=== PATIENT | male | born 1965 | race Caucasian/White ===

== ENCOUNTER 2016-04-27 16:00 | Emergency (ER) | payer OTHER ==
[~2016-04-27] VITALS: Ht 182.9 cm; Wt 77.3 kg
[~2016-04-27 16:00] MED LIST: HYDR2TAB27 PO; VENL75CA95 PO
[2016-04-27 16:05] VITALS: BP 131/75; PULSE 88; RESP 20; O2SAT 100
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
[2016-04-27] MEDS ORDERED: Piperacillin-Tazo 3.375 Gm Inj 3.375 GM in Dextrose 5% Minibag Plus 50 ML IV ONE (18:25)
[2016-04-27] MEDS ORDERED: 0.9% Sodium Chloride 1,000 ML IV SCH (18:25)
[2016-04-27 18:34] LABS: BASOPHILS % (AUTO) 0.8 % (0-3); EOSINOPHILS % (AUTO) 7.2 % (0-5); MONOCYTES % (AUTO) 14.4 % (4-12); Mean Corpuscular Hemoglobin 30.5 pg (27.0-35.0); NEUTROPHILS % (AUTO) 46.7 % (40-74); Platelet Count 232 bil/L (150-400)
--- NOTE | 2016-04-27 18:53 | DRSVH ---
PROCEDURE: X-RAY CHEST ONE VIEW, PORTABLE ([id number]) INDICATIONS: infection TECHNIQUE: One view of the chest was acquired. COMPARISON: None. FINDINGS: Surgical changes and devices: monitoring tech leads are seen over the chest. Sternotomy wires are pre sent. Previous anterior lower cervical spine surgery is noted with partially imaged plate and screws. Lungs and pleura: No pleural effusions or pneumothorax. Lungs are clear. Mediastinum: Mediastinal contours appear normal. Heart size is normal. Bones and chest wall: No suspicious bony lesions. Overlying soft tissues appear unremarkable. IMPRESSION: Acute disease is not seen in the upright portable chest. Dictated by: Cooper Escamilla M.D. on 04/27/2016 at 18:51 Approved by: Cooper Escamilla M.D. on 04/27/2016 at 18:51
[2016-04-27 18:58] LABS: TROPONIN T < 0.010 ug/L (0.0-0.011)
[2016-04-27 19:06] LABS: Magnesium 2.1 mg/dL (1.6-2.6)
[2016-04-27 19:42] VITALS: BP 133/76; PULSE 86; RESP 20; O2SAT 97
--- NOTE | 2016-04-27 19:48 | DRSVH ---
PROCEDURE: US VENOUS LEG DUPLEX BILATERAL INDICATIONS: bilateral leg edema, drug abuse TECHNIQUE: Real-time imaging, as well as color and pulse Doppler interrogation, were performed of the deep veins of both legs from the inguinal ligament to the popliteal fossa. COMPARISON: None. FINDINGS: The deep veins are normally compressible, and free of intraluminal thrombus. Color and pu lse Doppler demonstrate normal phasic intravascular flow. There is normal augmentation response to d istal compression maneuver. IMPRESSION: No evidence for deep venous thrombosis is found in the right lower extremity with this d uplex venous Doppler study. No evidence for deep venous thrombosis is found in the left lower extremity with this duplex venous D oppler study. Dictated by: Cooper Escamilla M.D. on 04/27/2016 at 19:46 Approved by: Cooper Escamilla M.D. on 04/27/2016 at 19:46
[2016-04-27] MEDS ORDERED: HYDROmorphone 1 mg/mL Inj IVPUSH PRN (19:50)
[2016-04-27 20:39] LABS: APPEARANCE,URINE CLEAR (CLEAR,HAZY); COLOR,URINE YELLOW (YELLOW); OCCULT BLOOD,URINE SMALL (NEGATIVE); PH,URINE 6.5 (5.0-8.0); UROBILINOGEN,URINE NORMAL (NORMAL)
--- NOTE | 2016-04-27 21:18 | DRSVH ---
PROCEDURE: X-RAY RIGHT KNEE, THREE VIEWS ([id number]) INDICATIONS: fall, pain TECHNIQUE: 3 views of the knee were acquired. COMPARISON: None. FINDINGS: Bones: No fractures or dislocations. No suspicious bony lesions. Soft tissues: No joint effusion. No suspicious soft tissue calcifications. IMPRESSION: No acute bony abnormality is seen. No intra-articular joint effusion is seen. Dictated by: Cooper Escamilla M.D. on 04/27/2016 at 21:16 Approved by: Cooper Escamilla M.D. on 04/27/2016 at 21:16
--- NOTE | 2016-04-27 21:19 | DRSVH ---
PROCEDURE: X-RAY PELVIS W/LAT HIP (LT) ([id number]) INDICATIONS: fall, pain TECHNIQUE: AP pelvis with lateral view(s) of the left hip(s). COMPARISON: None. FINDINGS: Bones: No fractures or dislocations. Pelvic ring appears intact. No suspicious bony lesions. Soft tissues: The visualized bowel gas pattern is normal. No suspicious soft tissue calcifications. IMPRESSION: No acute bony abnormality is seen in the pelvis or left hip. . Dictated by: Cooper Escamilla M.D. on 04/27/2016 at 21:17 Approved by: Cooper Escamilla M.D. on 04/27/2016 at 21:17
--- NOTE | 2016-04-27 21:20 | DRSVH ---
PROCEDURE: X-RAY LEFT ELBOW COMPLETE, MINIMUM THREE VIEWS ([id number]) INDICATIONS: fall, pain TECHNIQUE: 3 views of the elbow were acquired. COMPARISON: None. FINDINGS: Bones: No fractures or dislocations. No suspicious bony lesions. Soft tissues: No elbow joint effusion. No suspicious soft tissue calcifications. IMPRESSION: No acute bony abnormality or joint effusion is seen in the left elbow. Dictated by: Cooper Escamilla M.D. on 04/27/2016 at 21:18 Approved by: Cooper Escamilla M.D. on 04/27/2016 at 21:18
--- NOTE | 2016-04-27 21:21 | DRSVH ---
PROCEDURE: X-RAY LEFT FOOT COMPLETE, MINIMUM THREE VIEWS ([id number]) INDICATIONS: fall, pain TECHNIQUE: 3 views of the foot were acquired. COMPARISON: None. FINDINGS: Bones: No fractures or dislocations. No suspicious bony lesions. Soft tissues: No tibiotalar joint effusion. Achilles tendon appears normal. IMPRESSION: No bony abnormality seen in these 3 views of the left foot . Dictated by: Cooper Escamilla M.D. on 04/27/2016 at 21:18 Approved by: Cooper Escamilla M.D. on 04/27/2016 at 21:18
[2016-04-27] MEDS ORDERED: _oxyCODONE/APAP 5-325 mg Tablet PO PRN (22:40)
[2016-04-27 23:26] VITALS: PULSE 78; RESP 20; O2SAT 97
== END 2016-04-27 23:28 | disposition home or self-care (01) ==
LOC: SED 16:00
DX: R60.0 Localized edema (principal); L03.113 Cellulitis of right upper limb; F17.200 Nicotine dependence, unspecified, uncomplicated; Z88.8 Allergy status to other drugs, medicaments and biological substances; Z98.890 Other specified postprocedural states
CPT/HCPCS: 71010; 73080; 73501; 73562; 73630; 80053; 81000; 83605; 83735; 83880; 84484; 85025; 87040; 93005; 93970; 96365; 96367; 96375; 99285; G0480; J1170; J2543; J3360; J3370; J7030; J7060

== ENCOUNTER 2016-07-16 23:16 | Observation (INO) | payer OTHER, MEDICAID ==
[~2016-07-16] VITALS: Ht 185.4 cm; Wt 72.7 kg
[2016-07-16 23:22] VITALS: BP 127/75; PULSE 101; RESP 24; O2SAT 100
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
[2016-07-16] MEDS ORDERED: 0.9% Sodium Chloride 1,000 ML IV ONE (23:56)
[2016-07-17] MEDS ORDERED: Buprenorphine 2 mg SL Tablet SL ONE
[2016-07-17 00:39] LABS: BASOPHILS % (AUTO) 0.5 % (0-3); EOSINOPHILS % (AUTO) 2.9 % (0-5); Mean Corpuscular Hemoglobin 26.9 pg (27.0-35.0); Mean Corpuscular Volume 84.5 fL (81-100); NEUTROPHILS % (AUTO) 62.3 % (40-74); Platelet Count 305 bil/L (150-400)
[2016-07-17 01:05] LABS: INR 0.97 ratio
[2016-07-17 01:08] LABS: APPEARANCE,URINE CLEAR (CLEAR,HAZY); COLOR,URINE STRAW (YELLOW); OCCULT BLOOD,URINE LARGE (NEGATIVE); PH,URINE 6.5 (5.0-8.0); UROBILINOGEN,URINE NORMAL (NORMAL)
[2016-07-17 01:20] LABS: Magnesium 1.7 mg/dL (1.6-2.6); Phosphorus 1.9 mg/dL (2.5-4.9)
[2016-07-17 01:26] LABS: ERYTHROCYTE SEDIMENTATION RATE 34 mm/hr (0-30)
[2016-07-17] MEDS ORDERED: Clindamycin Inj 900 MG in IV Premix 1 EACH IV ONE (01:45)
[2016-07-17] MEDS ORDERED: Vancomycin Inj 1,500 MG in 0.9% Sodium Chloride 500 ML IV ONE (01:49)
[2016-07-17] MEDS ORDERED: Alum-Mag Hydrox-Simeth 30 mL Suspension PO PRN (02:30)
[2016-07-17] MEDS ORDERED: Polyethylene Glycol (PEG) 17 Gm Powder PO PRN (02:30)
[2016-07-17] MEDS ORDERED: Ondansetron 2 mg/mL 2 mL Inj IVPUSH PRN (02:30)
[2016-07-17] MEDS: 0.9% Sodium Chloride 1,000 ML IV SCH ×3 (02:30→19:28)
[2016-07-17] MEDS ORDERED: LORazepam 2 mg Tablet PO ONE (02:45)
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
[2016-07-17] MEDS ORDERED: diphenhydrAMINE 25 mg Capsule PO PRN (04:15)
[2016-07-17] MEDS ORDERED: cloNIDine 0.1 mg Tablet PO PRN (04:20)
[2016-07-17 04:25] VITALS: BP 120/72; PULSE 96; RESP 16; O2SAT 99
[2016-07-17 04:59] VITALS: BP 132/77; PULSE 90; RESP 18; O2SAT 99
--- NOTE | 2016-07-17 05:23 | PCM.CONPHA ---
Subjective Date of Service: Jul 17, 2016 Requesting Provider: SUSY BYRD DO Rib pain shoulder pain multiple abscesses Reason for Pharmacy Consult: Vancomycin Dosing Objective Vital Signs Date Time Temp Pulse Resp B/P Pulse Ox O2 Delivery O2 Flow Rate FiO2 07/17/16 04:59 36.4 90 18 132/77 99 Room Air 07/17/16 04:25 37.1 96 16 120/72 99 Room Air 07/16/16 23:22 37.2 101 24 127/75 100 Room Air Intake and Output 07/15/16 07/16/16 07/17/16 00:00 00:00 00:00 Intake Total 1000 ml Balance 1000 ml Weight (Kilograms): 81.600 Height (Feet): 6 Height (Inches): 1.00 Test 07/16/16 00:20 07/17/16 00:25 White Blood Count 12.3th/mm3 (3.8-10.1) Red Blood Count 3.49mil/mm3 (4.40-5.80) Hemoglobin 9.4g/dL (13.8-17.2) Hematocrit 29.5% (41.0-50.0) Mean Corpuscular Volume 84.5fL (81-100) Mean Corpuscular Hemoglobin 26.9pg (27.0-35.0) Mean Corpuscular Hemoglobin Concent 31.9% (32.0-37.0) Red Cell Distribution Width 15.0% (12.3-15.4) Platelet Count 305bil/L (150-400) Neutrophils (%) (Auto) 62.3% (40-74) Lymphocytes (%) (Auto) 23.0% (14-46) Monocytes (%) (Auto) 11.0% (4-12) Eosinophils (%) (Auto) 2.9% (0-5) Basophils (%) (Auto) 0.5% (0-3) Erythrocyte Sedimentation Rate 34mm/hr (0-30) Prothrombin Time 10.4sec (8.1-12.5) Prothromb Time International Ratio 0.97ratio Activated Partial Thromboplast Time 24.8sec (22.8-33.0) Sodium Level 140mEq/L (134-144) Potassium Level 3.5mEq/L (3.5-5.2) Chloride Level 100mEq/L (97-108) Carbon Dioxide Level 27mmol/L (18-29) Blood Urea Nitrogen 17mg/dL (6-24) Creatinine 0.91mg/dL (0.76-1.27) Estimat Glomerular Filtration Rate 93mL/min (>59) Glucose Level 107mg/dL (60-99) Lactic Acid Level 1.8mmol/L (0.4-2.0) Calcium Level 8.1mg/dL (8.5-10.1) Phosphorus Level 1.9mg/dL (2.5-4.9) Magnesium Level 1.7mg/dL (1.6-2.6) Total Bilirubin 0.2mg/dL (0.0-1.2) Aspartate Amino Transf (AST/SGOT) 15U/L (0-50) Alanine Aminotransferase (ALT/SGPT) 19U/L (0-44) Alkaline Phosphatase 84U/L (25-150) Total Protein 6.9g/dL (6.4-8.4) Albumin 3.1g/dL (3.4-5.0) Lipase 37U/L (13-60) Procalcitonin 0.10ng/mL (0.00-0.08) Urine Color Straw (YELLOW) Urine Appearance Clear (CLEAR,HAZY) Urine pH 6.5 (5.0-8.0) Urine Specific [place] 1.005 (1.003-1.035) Urine Protein Negativemg/dL (NEG,TRACE) Urine Glucose (UA) Negativemg/dL (NEGATIVE) Urine Ketones Negativemg/dL (NEGATIVE) Urine Occult Blood Large (NEGATIVE) Urine Nitrite Negative (NEGATIVE) Urine Bilirubin Negative (NEGATIVE) Urine Urobilinogen Normalmg/dL (NORMAL) Urine Leukocyte Esterase Negative (NEGATIVE) Urine RBC 11-50/hpf (0-2) Urine WBC 0-5/hpf (0-5) Urine Epithelial Cells Occasional/hpf (NONE-MOD) Urine Crystals None seen (NONE SEEN) Urine Bacteria None/hpf (NONE-FEW) Urine Hyaline Casts None/lpf (NONE) Urine Granular Casts None seen (NONE SEEN) Urine Waxy Casts None seen (NONE SEEN) Urine Red Blood Cell Casts None seen (NONE SEEN) Urine White Blood Cell Casts None seen (NONE SEEN) Urine Mucus None seen (None Seen) Urine Trichomonas None seen (NONE SEEN) Urine Yeast None (NONE SEEN) Urine Culture Reflexed Not indicated Urine Opiates Screen Negative Urine Methadone Screen Negative Urine Barbiturates Screen Negative Urine Amphetamines Screen Positive Urine Benzodiazepines Screen Negative Urine Cocaine Metabolite Screen Negative Urine Cannabinoids Screen Positive Assessment/Plan Assessment/Plan A: * Vancomycin dosing by pharmacy for 51 y/o man with abscesses * The patient received a 1500 mg IV loading dose of vancomycin in the ED * He is also being started on Clindamycin * Estimated CrCl is 98 mL/min (Cockcroft & Gault) * Estimated vancomycin half-life is 8 hours and estimated Vd is 51 liters P: * Starting vancomycin 1250 mg IV every 12 hours * Target vancomycin trough range of 10 - 15 mcg/mL * Drawing a trough level prior to the fourth dose Thank you. Pharmacy will continue to follow this patient. Rubia Ramires, PharmD Rubia Ramires Jul 17, 2016 05:23
--- NOTE | 2016-07-17 06:49 | ABG ---
DateTimeAnalyzed 06:44:29 -_ pH ____7.337 - pCO2 ___56.5__ -mmHg pO2 ___39.8__ -mmHg HCO3- ___30.3__ -mmol/L ABE ____4.2__ -mmol/L tHb ____8.7__ -g/dL O2Hb ___69.4__ -% COHb ____1.9__ -% MetHb ___-1.2__ -% sO2 ___69.9__ -% FIO2 ___21.0__ -% Drawn By AF - Date/Time Notified____ 06:48:00 -_ Notified By af - Notified Whom ____Nurse - B 757 -mmHg K+ ____3.5__ -mmol/L tO2 ____8.5__ -Vol% Pete test N/A -
[2016-07-17 06:51] LABS: BASOPHILS % (AUTO) 0.6 % (0-3); EOSINOPHILS % (AUTO) 2.9 % (0-5); MONOCYTES % (AUTO) 10.7 % (4-12); Mean Corpuscular Hemoglobin 26.8 pg (27.0-35.0); Mean Corpuscular Volume 84.8 fL (81-100); NEUTROPHILS % (AUTO) 59.5 % (40-74); Platelet Count 300 bil/L (150-400)
--- NOTE | 2016-07-17 07:29 | NUR ---
Admission Pt arrived from the ED at 0430. He had 4mg ativan in the ED and was very sedated. Unable to rouse. MD was in to see him and unable to rouse. Pt VSS, RRR. Pt is here for heroin induced abcesses from feet up to arms/shoulders, 1 on left side of head noted. He is a meth and marijuanna user as well. He stated in ED he wants to detox and was given subitex. Unable to orient Pt to room. All belongings locked up by security. Pt has central line in upper right chest, NS running at 100ml/hr. Unable to finish admission as Pt not rousable.
[2016-07-17] MEDS: Venlafaxine XR 75 mg ER24 Capsule PO SCH (08:30)
[2016-07-17] MEDS: Famotidine Inj 20 MG in IV Premix 1 EACH IV SCH ×2 (08:34→20:00)
[2016-07-17] MEDS: Heparin 5,000 Unit/mL Inj SUBQ SCH ×2 (08:37→16:10)
[2016-07-17] MEDS: Vancomycin Dose per Pharmacist XX SCH (08:38)
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
--- NOTE | 2016-07-17 09:39 | DRSVH ---
PROCEDURE: X-RAY CHEST ONE VIEW, PORTABLE ([id number]) INDICATIONS: post subclav placement TECHNIQUE: One view of the chest was acquired. COMPARISON: None. FINDINGS: Surgical changes and devices: Right subclavian chest port has been placed tip projecting over the mid superior vena cava. Post median sternotomy. Lower cervical spine fixation hardware. Lungs and pleura: No pleural effusions or pneumothorax. Lungs are clear. Mediastinum: Mediastinal contours appear normal. Heart size is normal. Bones and chest wall: No suspicious bony lesions. Overlying soft tissues appear unremarkable. IMPRESSION: No immediate complications status right subclavian chest port placement. Dictated by: Vimal Padilla RRA Interpreted: Jayde Pierce MD on 07/17/2016 at 9:38 Transcribed by: TIM on 07/17/2016 at 9:39 Approved by: Jayde Pierce MD, PhD on 07/17/2016 at 16:29
[2016-07-17] MEDS: Clindamycin Inj 900 MG in IV Premix 1 EACH IV SCH ×2 (11:31→19:25)
--- NOTE | 2016-07-17 11:31 | PCM.PNMED ---
Subjective Date of Service Jul 17, 2016 Subjective Patient nonverbal, unarousable Exam Vital Signs Vital Sign - Last Date Time Temp Pulse Resp B/P Pulse Ox O2 Delivery O2 Flow Rate FiO2 07/17/16 04:59 36.4 90 18 132/77 99 Room Air Intake and Output 07/16/16 07/16/16 07/17/16 Cumulative From/Thru 15:00 23:00 07:00 07/16/16 23:22 - 07/17/16 05:27 Intake Total 1000 ml 1000 ml Balance 1000 ml 1000 ml Intake IV Total 1000 ml 1000 ml Exam Gen.-Disheveled male covered in tattoos sleeping not arousable to gentle stimuli , no apparent distress. Eyes-eyes closed, normal eyelids, no discharge ENT- ears normal, nose normal Neck- supple/trach midline CVS- RRR no murmur or gallop Lungs- CTA GI- NABS/NT soft Musc- moving 4 no obvious deformity Neuro- cranial nerves II through XII intact to gross examination, nonfocal Skin- warm and dry, no rashes patient is dirt, particularly in the feet, there are multiple wounds c/w injection IV/IM/SubQ, no acutely infected wounds appeared in the areas examined however I could easily miss them as they are everywhere Psych- unarousable but when he wakes up he is apparently incoherent and pulling at things Lab and Diagnostics Result Diagram: 07/17/16 0500 07/17/16 0500 X-Rays, CTs and MRIs Rib Xray Fracture of Left 6th and 7th ribs. Interpretation / Wet Read by: Wet read ED physician Right Shoulder Xray Interpretation: No fracture. Interpretation / Wet Read by: Wet read ED physician 12-lead ECG ECG Interpretation: Sinus tachycardia, rate 100 Left atrial enlargement Borderline ST depression, anterolateral leads Time: 00:20 Interpreted by: ED physician Additional Diagnostics UA tox rapid +marijuana, +methamphetamine, +opioid, tricyclic antidepressants Assessment & Plan 51 y.o. M with history of IV heroin use and methamphetamine abuse(inhalation route), depression, PTSD. Admitted for treatment of multiple abscess, IV heroine abuse, methamphetamine abuse, rib fractures. #Acute metabolic encephalopathy-apparently patient will sedated from 4 mg of lorazepam given to Central line earlier. #Abscess, acute - Patient presents with multiple abscess over all extremities and groin, with some actively draining, likely due to poor needle habitus and IVDU - Continue antibiotics Vancomycin and Clindamycin for MRSA and strep coverage - Consult placed for General Surgery in AM for surgical I & D, - IV NS - Repeat CBC and BMP in AM - Blood cultures ordered - Initial Lactic acid negative, repeat in AM - Procalcitonin ordered - MRSA swab ordered #. Heroine abuse, acute - Patient reports last use yesterday 07/16/16 - 8 mg subutex given in ED - Klonopin 0.5 mg BID PRN for agitation - Avoid IV narcotics #. Methamphetamine abuse, acute - Patient reports last use yesterday 07/16/16 - Lorazepam 1 mg TID PRN for agitation - Clonidine 0.1 mg BID PRN for BP systolic > 180 - Benadryl 25 mg BID for agitation #. Left Rib fractures, acute - No clinical sign of pneumothorax, flail chest - Acetaminophen PRN for pain - Continue to monitor Chronic conditions PTSD - Continue Venlafaxine -We will consider adding gabapentin, clonidine, and/or doxazosin Depression - Continue Venlafaxine CODE STATUS FULL CODE DVT: SQ heparin and SCD GI: Famotidine Patient is admitted under observation status due to risk of adverse event and treatment for abscess, heroin abuse, methamphetamine abuse, rib fractures, GI Prophylaxis: H2 mohit VTE Prophylaxis: Sub-Q Heparin (Unfractionated) VTE Mechanical Devices: Intermittant Pneumatic CD Resuscitation Status: CPR: Attempt Resuscitation Yunier Tuttle MD Jul 17, 2016 11:31
--- NOTE | 2016-07-17 11:50 | NUR ---
Social Work Note: Screen Note Data& Assessment: EMR reviewed. Patient is a 51 year old female admitted on 07/17/16 for multiple abscesses. Pt has [employer] for insurance coverage and sees no none for primary care. Pt has no street address listed. Pt is currently one to 2 person assist. SW attempted to meet with patient and complete CD assessment, but patient is currently not alert and oriented and has a one-to-one sitter. SW will attempt to complete assessment once to patient is alert. SW attempted to call patient's [facility], but there was no answer. SW left a message with NOK, Aleta Fan [phone], requesting a call back. SW will continue to follow. Plan: Anticipated discharge home via POV when medically ready. Patient's discharge needs have not been identified at this time. SW to continue to follow if any needs arise. Yarely Hebert LMSW, ACEkaterina
[2016-07-17 12:05] VITALS: BP 119/85; PULSE 82; RESP 16; O2SAT 99
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
[2016-07-17] MEDS ORDERED: Sodium Chloride LOK Flush 10 mL Syringe IVFLUSH PRN ×2 (14:50)
[2016-07-17 15:52] VITALS: BP 124/72; PULSE 78; RESP 18; O2SAT 98
[2016-07-17] MEDS: Vancomycin Inj 1,250 MG in 0.9% Sodium Chloride 250 ML IV SCH (16:10)
[2016-07-17 18:20] VITALS: BP 121/78; PULSE 69; RESP 16; O2SAT 99
[2016-07-17 20:32] VITALS: BP 136/74; PULSE 77; RESP 19; O2SAT 100
--- NOTE | 2016-07-17 21:12 | PROG NOTE ---
[address] [address] PROGRESS NOTE PATIENT: BETO CASTILLO : 1965 MR#: [id number] ADMIT: 07/17/2016 JOB ID: [id number] DATE: 07/17/2016 The patient is seen at 8:30 in the evening. He continues to not be able to hold a cohesive conversation regarding informed consent for incision and drainage of multiple abscesses. His cellulitis around his feet is improving on IV antibiotics. Although he does have abscesses that will benefit from drainage at this point, none of them are life-threatening or limb-threatening enough to warrant a trip to the operating room with a general anesthetic without informed consent. General Surgery will follow up in the morning on this patient.
[2016-07-18] MEDS: Heparin 5,000 Unit/mL Inj SUBQ SCH ×4 (00:41→17:19)
[2016-07-18 00:48] VITALS: BP 150/78; PULSE 80; RESP 16; O2SAT 99
[2016-07-18] MEDS: Clindamycin Inj 900 MG in IV Premix 1 EACH IV SCH ×3 (04:25→21:19)
[2016-07-18 04:57] VITALS: BP 138/88; PULSE 74; RESP 16; O2SAT 98
[2016-07-18] MEDS: Vancomycin Inj 1,250 MG in 0.9% Sodium Chloride 250 ML IV SCH ×2 (05:04→17:20)
[2016-07-18 05:14] LABS: BASOPHILS % (AUTO) 0.8 % (0-3); EOSINOPHILS % (AUTO) 3.9 % (0-5); MONOCYTES % (AUTO) 9.2 % (4-12); Mean Corpuscular Hemoglobin 26.6 pg (27.0-35.0); Mean Corpuscular Volume 84.1 fL (81-100); NEUTROPHILS % (AUTO) 58.9 % (40-74); Platelet Count 303 bil/L (150-400)
--- NOTE | 2016-07-18 06:01 | NUR ---
Mentation Remains mostly sedated this shift. Awakens to touch and name for brief period of time but unable to provide any meaningful information and does not engage with staff. Sits up in bed for brief periods and then drifts back to sleep. Appears to be having hallucinations at times. Noted to be picking at things in the air. 1:1 this shift for patient safety. Currently resting without any complaints.
[2016-07-18] MEDS: 0.9% Sodium Chloride 1,000 ML IV SCH ×2 (08:18→21:18)
[2016-07-18] MEDS: Venlafaxine XR 75 mg ER24 Capsule PO SCH (08:19)
[2016-07-18] MEDS: Famotidine Inj 20 MG in IV Premix 1 EACH IV SCH (08:19)
[2016-07-18] MEDS: Vancomycin Dose per Pharmacist XX SCH (08:30)
[2016-07-18] MEDS: LORazepam 1 mg Tablet PO PRN ×2 (09:27→17:59)
--- NOTE | 2016-07-18 09:38 | PCM.PNSURG ---
Subjective Date of Service: Jul 18, 2016 Visit Information: Reason for Visit Multiple Abscesses,Iv Heroin Abuse Withdrawal Surgery/Surgery Date Post-Op Day # Date of Admission: Jul 17, 2016 at 02:09 Hospital Day #2 Subjective: Seen with Dr. Corado Unwilling to wait until this afternoon for his operation. Would prefer eating today and having an operation tomorrow. Postop General: Other (requesting Suboxone) Gastrointestinal: No N/V Postop Activity: Ambulating in Room Only Objective Objective Skin is surveyed: 2 abscesses in the left upper extremity plus/minus fluctuance. 4 abscesses that are fluctuant in the right upper extremity 1 right groin abscess 2 right lower extremity abscesses 1 left lower extremity abscess Vital Sign- Last 8 Hours Date Time Temp Pulse Resp B/P Pulse Ox O2 Delivery O2 Flow Rate FiO2 07/18/16 04:57 36.7 74 16 138/88 98 Room Air Intake and Output- Last 8 Hour 07/18/16 Cumulative From/Thru 07:00 07/16/16 23:22 - 07/18/16 06:26 Intake Total 1237 ml 3695 ml Output Total 1200 ml 2450 ml Balance 37 ml 1245 ml Intake Oral 0 ml 0 ml IV Total 1237 ml 3695 ml Output Urine Total 1200 ml 2450 ml # Voids 2 # Bowel Movements 0 0 General: Alert, Cooperative, Mild Distress Lungs: Clear to Auscultation Heart: Regular Rate/Rhythm Neuro: Normal Speech Catheters: None Result Diagram: 07/18/165 07/18/16 0455 Assessment & Plan Impression Primary diagnosis: Multiple soft tissue abscesses secondary to IVDA Other diagnoses: PTSD Depression IVDU heroine abuse methamphetamine abuse Daily cigarette smoker Daily marijuana user Problems: Plan Regular diet, nothing by mouth after midnight. Anticipate I&D in the operating room by Dr. Jiménez tomorrow. VTE Prophylaxis: Sub-Q Heparin (Unfractionated) Resuscitation Status: CPR: Attempt Resuscitation Tru Dickinson PA-C Jul 18, 2016 09:38
--- NOTE | 2016-07-18 11:20 | PCM.PNMED ---
Subjective Date of Service Jul 18, 2016 Subjective Drowsy white male waking up complaining of these quite thirsty and hungry. He is otherwise pleasant denies chest pain, dyspnea, nausea or vomiting Exam Vital Signs Vital Sign - Last Date Time Temp Pulse Resp B/P Pulse Ox O2 Delivery O2 Flow Rate FiO2 07/18/16 04:57 36.7 74 16 138/88 98 Room Air Intake and Output 07/17/16 07/17/16 07/18/16 Cumulative From/Thru 14:59 22:59 06:59 07/16/16 23:22 - 07/18/16 06:26 Intake Total 1458 ml 1237 ml 3695 ml Output Total 1250 ml 1200 ml 2450 ml Balance 208 ml 37 ml 1245 ml Intake Oral 0 ml 0 ml 0 ml IV Total 1458 ml 1237 ml 3695 ml Output Urine Total 1250 ml 1200 ml 2450 ml # Voids 2 2 # Bowel Movements 0 0 0 Exam Gen.- male covered in tattoos sleeping, no apparent distress, woke up easily, clearly drowsy but agreeable Open, conjunctiva clear, normal eyelids, no discharge ENT- ears normal, nose normal Neck- supple/trach midline CVS-normal rate Lungs-regular and nonlabored no accessory muscles GI-flat Musc- moving 4 no obvious deformity Neuro- cranial nerves II through XII intact to gross examination, nonfocal Psych-pleasant, appropriate, coherent but drowsy Skin is surveyed: 2 abscesses in the left upper extremity plus/minus fluctuance. 4 abscesses that are fluctuant in the right upper extremity 1 right groin abscess 2 right lower extremity abscesses 1 left lower extremity abscess Lab and Diagnostics Result Diagram: 07/18/1645407/18/16454 X-Rays, CTs and MRIs Rib Xray Fracture of Left 6th and 7th ribs. Interpretation / Wet Read by: Wet read ED physician Right Shoulder Xray Interpretation: No fracture. Interpretation / Wet Read by: Wet read ED physician 12-lead ECG ECG Interpretation: Sinus tachycardia, rate 100 Left atrial enlargement Borderline ST depression, anterolateral leads Time: 00:20 Interpreted by: ED physician Additional Diagnostics UA tox rapid +marijuana, +methamphetamine, +opioid, tricyclic antidepressants Assessment & Plan 51 y.o. M with history of IV heroin use and methamphetamine abuse(inhalation route), depression, PTSD. Admitted for treatment of multiple abscess, IV heroine abuse, methamphetamine abuse, rib fractures. 07/18 patient awake and pleasant plan for OR for I+D with Dr. Jiménez 07/19 #Acute metabolic encephalopathy-apparently patient will sedated from 4 mg of lorazepam given to Central line earlier. Patient awake 07/18 #Abscess, acute - Patient presents with multiple abscess over all extremities and groin, with some actively draining, likely due to poor needle habitus and IVDU - Continue antibiotics Vancomycin and Clindamycin for MRSA and strep coverage - Consult placed for General Surgery in AM for surgical I & D, - Blood cultures (-)@ 24hrs 07/18 - MRSA swab ordered 07/18 -Nothing by mouth midnight planned for IMV with Dr. Jiménez 07/19 #. IVDA Heroine/Methamphetamine abuse- tox (+)amphetamine, (-)opiate, (+)THC - Patient reports last use yesterday 07/16/16 - Klonopin 0.5 mg BID PRN for agitation - Lorazepam 1 mg TID PRN for agitation - Clonidine 0.1 mg BID PRN for BP systolic > 180 - Benadryl 25 mg BID for agitation #. Left Rib fractures, acute - No clinical sign of pneumothorax, flail chest - Acetaminophen PRN for pain - Continue to monitor PTSD - Continue Venlafaxine -We will consider adding gabapentin, clonidine, and/or doxazosin Depression - Continue Venlafaxine CODE STATUS FULL CODE DVT: SQ heparin and SCD GI: Famotidine Patient is admitted under observation status due to risk of adverse event and treatment for abscess, heroin abuse, methamphetamine abuse, rib fractures, GI Prophylaxis: H2 mohit VTE Prophylaxis: Sub-Q Heparin (Unfractionated) VTE Mechanical Devices: Intermittant Pneumatic CD Resuscitation Status: CPR: Attempt Resuscitation Yunier Tuttle MD Jul 18, 2016 11:06
[2016-07-18 14:48] VITALS: BP 126/70; PULSE 74; RESP 16; O2SAT 97
--- NOTE | 2016-07-18 15:11 | NUR ---
Social Work- Initial Assessment Data: EMR reviewed. Pt is a 51 year old male admitted 07/17/16 for multiple abscesses per H&P. Pt to go to OR tomorrow 07/19. Pt's insurance is [employer] and [facility] Medicaid. Pt has no PCP. SW spoke with pt regarding discharge plan, SW role explained. Pt alert and oriented x3. Pt resides in [facility] where he remains independent with his ADLs. Pt has a history of IV drug use, SW spoke with pt regarding this. Pt states motivation to change and interest in an assessment by CDP. The patient has agreed to complete an on-site assessment with [facility], CD consult deferred to CDP. ABI obtained. Pt informed SW he has no PCP, requested SW to set up appointment. [facility] Specialist to set up [facility] with [facility]. Pt has no DPOA listed, pt states his DPOA is cousin Jenae Cortes [phone]. SW encouraged pt to bring copy of paperwork to hospital. Pt is unsure of transportation home at this time. Pt to discharge home via POV. SW will continue to follow. Assessment: [place] Plan: The patient has agreed to complete an on-site assessment with [facility], CD consult deferred to CDP. Pt to discharge home via POV. SW will continue to follow. CHIDI Mensah
--- NOTE | 2016-07-18 15:12 | NUR ---
Agitation, Appetite Patient some what agitated/anxious early this shift. Ordered anti-agitation/anxiety medications administered. Patient responded to medication well, stating that he had a decrease in agitation and anxiety. Patient has large appetite, tolerating food well. Care is ongoing.
[2016-07-18] MEDS ORDERED: Vancomycin Serum Trough XX ONE (15:30)
--- NOTE | 2016-07-18 17:00 | PCM.PHAPRO ---
Progress Date of Service: Jul 18, 2016 Rib pain shoulder pain multiple abscesses Vancomycin management per pharmacy Indication: abscess Vancomycin trough goal: 10-15 Labs SCr: 0.75 Trough: 10.4 Cultures: no growth to date Vancomycin trough is therapeutic. Continue vancomycin 1250 mg Q12H. Next trough has been scheduled for 07/20/16 @1530. Pharmacy to continue monitor and dose vancomycin. Thank you, George Jacobson Pharmacist George Jacobson Jul 18, 2016 17:00
[2016-07-18] MEDS ORDERED: diphenhydrAMINE 50 mg Capsule PO PRN (18:55)
[2016-07-18] MEDS ORDERED: diphenhydrAMINE 25 mg Capsule PO PRN (18:58)
--- NOTE | 2016-07-18 19:20 | NUR ---
Anxiety/pain Pt. reported strong rib and foot pain this evening, along with anxiety and restlessness. PRN ativan and tylenol given. Tylenol was ineffective for pain management. Pt. reports some improvement with anxiety. MD paged about pain and to clarify clonidine order. PRN toradol ordered and administered by night RN. Will continue to monitor.
[2016-07-18 20:00] VITALS: BP 144/79; PULSE 76; RESP 20; O2SAT 100
--- NOTE | 2016-07-18 22:55 | NUR ---
Patient Left AMA At 2256 patient left ama. Vimal Lynn RN pulled central line at 2230. Patient escorted out by security. Dr. Davis aware of situation.
--- NOTE | 2016-07-19 02:30 | NUR ---
Refusal of Care/Agitation On initial assessment, patient was extremely agitated and demanded medications for pain. Tramadol was administered. Patient did allow me to auscultate heart and lung sounds but refused to answer questions regarding his health. Patient allowed me to put a tegaderm dressing on top of both his feet. Patient used profane language throughout the assessment and stated that he was "going to go off" and " hurt someone" if his pain issues were not addressed. I tried to explain that has his nurse, I could only administer what was ordered by the physician. Patient threaten to leave AMA. Patient then said he was leaving. Dr. Robyn Davis made aware of situation.
[2016-07-19] MEDS ORDERED: Pantoprazole 40 mg ER24 Tablet PO SCH (07:30)
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
[2016-07-20] MEDS ORDERED: Vancomycin Serum Trough XX ONE (15:30)
== END 2016-07-18 22:55 | disposition left against medical advice (07) ==
LOC: SED 23:16 → INTOOBSV 07-17 02:09 → OSC 07-17 02:09 → OBSVTOIN 07-17 02:09 → OSC 07-17 04:38
PROVIDERS: ADMIT Internal Medicine; ATTEND Internal Medicine
PROC: 4A033R1 Measurement of Arterial Saturation, Peripheral, Percutaneous Approach (ICD-10-PCS; principal; 2016-07-17)
DX: L02.413 Cutaneous abscess of right upper limb (principal); S22.42XA Multiple fractures of ribs, left side, initial encounter for closed fracture; L02.214 Cutaneous abscess of groin; L02.416 Cutaneous abscess of left lower limb; L02.415 Cutaneous abscess of right lower limb; F17.210 Nicotine dependence, cigarettes, uncomplicated; V19.3XXA Pedal cyclist (driver) (passenger) injured in unspecified nontraffic accident, initial encounter; F32.9 Major depressive disorder, single episode, unspecified; F43.10 Post-traumatic stress disorder, unspecified; L02.414 Cutaneous abscess of left upper limb; F15.10 Other stimulant abuse, uncomplicated; F11.10 Opioid abuse, uncomplicated
CPT/HCPCS: 36415; 36556; 71010; 71101; 73030; 80048; 80053; 80202; 81000; 82375; 82803; 83605; 83690; 83735; 84100; 84145; 85025; 85610; 85651; 85730; 87040; 90791; 93005; 96360; 99285; G0378; G0480; J1644; J2060; J3370; J3490; J7030; J7040; J7050